=== PATIENT | female | born 1985 | race Caucasian/White ===

== ENCOUNTER 2016-12-11 19:54 | Emergency (ER) | payer OTHER ==
[~2016-12-11] VITALS: Ht 149.9 cm; Wt 47.7 kg
[2016-12-11 20:05] VITALS: BP 131/91; PULSE 80; RESP 16; O2SAT 99
--- NOTE | 2016-12-11 20:31 | ED.REPORT ---
HPI-Back Pain Under 40 Date of Service December 11, 2016 ED Provider: Dawood Blood DO A 31 year old female with a history of back injury presents to the ED due to back pain. The pt injured her back lifting a heavy object several years ago and has been in physical therapy since. The pt felt tightness in her back in the morning three days ago which worsened throughout the day despite stretching. By that evening, her back began to spasm. This has continued since and the pain is worsened when the pt lays down. She denies saddle numbness, loss of bowel or bladder control. The pt returned from a trip to [facility] this morning. Nursing Notes Stated Complaint: BACK SPASMS Chief Complaint: Back Pain or Injury Nursing Notes Reviewed: Yes Allergies: Coded Allergies: Penicillins (Verified Allergy, Unknown, 12/11/16) hydrocodone (Verified Allergy, Unknown, 12/11/16) General Time Seen by MD: 20:31 Chief Complaint Back pain Hx Obtained From: Patient Arrived By: Walk-in Sudden in Onset?: No Onset Occurred: 3 days ago Recent Healthcare: No recent hospitalization Similar Sx Previous: Yes Past Medical History Past Medical History back injury Past Surgical History none reported Smoking History Unknown if Ever Smoker Social History Alcohol Use: "Social" Other Social History: Good social support, Ambulatory Status Independent Review of Systems Review of Systems Note: denies saddle numbness denies loss of bowel or bladder control Respiratory: Denies: Non-productive cough, Shortness of breath Cardiovascular: Denies: Chest pain GI: Denies: Abdominal pain Musculoskeletal: Reports: Back pain Complete sys rev & neg: except as marked. Physical Exam Initial Vital Signs Vital Signs (First) Date Time Temp Pulse Resp B/P Pulse Ox O2 Delivery O2 Flow Rate FiO2 12/11/16 20:05 36.6 80 16 131/91 99 Room Air Initial VS: Reviewed General/Constitutional: Awake, Alert Back: Atraumatic left mid lumbar and lower thoracic muscle pain with palpation and front bending Neurologic: Oriented X3, Speech NL, No motor deficits, No sensory deficits Neck: Atraumatic, Supple, Full range of motion Respiratory / Chest: Atraumatic, Breath sounds NL, Breath sounds = bilat, No respiratory distress Cardiovascular: Heart rate NL, Regular rhythm, Heart sounds NL Abdomen: Atraumatic, Soft, Non-tender Lower Extremity / Pelvis / MS: Atraumatic, Full range of motion Head / Eyes: Atraumatic, Normocephalic, PERRL, EOMI ENT: Atraumatic, Airway patent, Mucous membranes moist Upper Extremity / MS: Atraumatic, Full range of motion Skin: Atraumatic, Color NL, No rash, Warm, Dry Psychiatric: Affect NL, Mood NL Interpretation & Diagnostics Lab Results Interpretation Test 12/11/16 22:26 Urine Color Yellow (YELLOW) Urine Appearance Clear (CLEAR,HAZY) Urine pH 7.0 (5.0-8.0) Urine Specific Mcgregor 1.015 (1.003-1.035) Urine Protein Negativemg/dL (NEG,TRACE) Urine Glucose (UA) Negativemg/dL (NEGATIVE) Urine Ketones Negativemg/dL (NEGATIVE) Urine Occult Blood Negative (NEGATIVE) Urine Nitrite Negative (NEGATIVE) Urine Bilirubin Negative (NEGATIVE) Urine Urobilinogen Normalmg/dL (NORMAL) Urine Leukocyte Esterase Negative (NEGATIVE) Urine RBC 0-2/hpf (0-2) Urine WBC 0-5/hpf (0-5) Urine Epithelial Cells Moderate/hpf (NONE-MOD) Urine Crystals None seen (NONE SEEN) Urine Bacteria Moderate/hpf (NONE-FEW) Urine Hyaline Casts None/lpf (NONE) Urine Granular Casts None seen (NONE SEEN) Urine Waxy Casts None seen (NONE SEEN) Urine Red Blood Cell Casts None seen (NONE SEEN) Urine White Blood Cell Casts None seen (NONE SEEN) Urine Mucus None seen (None Seen) Urine Trichomonas None seen (NONE SEEN) Urine Yeast None (NONE SEEN) Urinalysis Comment None Urine Culture Reflexed Indicated Pulse Oximetry Interpretation Pulse Oximetry Interpretation: 99% on room air Pulse Oximetry: Pulse Ox normal Re-Eval/Medical Decision Med Decision/Clinical Course Healthy 31-year-old female with recurrent back pain dating to her back last week. It has been steadily worsening. She took a long plane ride back stiffened up. She has left paraspinal muscle tenderness. No bony tenderness. Nothing in her history of physical examination is consistent with an aortic aneurysm, aortic dissection or pulmonary emboli. She is low risk based on pelvis criteria so x-rays are not indicated. Urinalysis was negative. I will place her on Naprosyn twice daily. Percocet for breakthrough pain. She received Toradol with significant relief of pain. Routine opiate and back pain warnings were given. Re-Evaluation/Progress #1: Time of Eval: 22:01 Patient Status: Condition improved Re-Evaluation/Progress Note: Pt rechecked, whose pain has improved. The plan for further treatment is discussed. Re-Evaluation/Progress #2: Time of Eval: 23:14 Patient Status: Condition improved Re-Evaluation/Progress Note: Pt rechecked, who is comfortable. The diagnosis and plan for discharge are discussed. The pt understands and agrees with the plan. All questions are addressed at this time. Counseled Regarding: Diagnosis, Lab results, Need for follow-up, When/why to return to ED Discharge & Departure Impression: Primary Impression: Lumbosacral strain Encounter type: initial encounter Qualified Code: S39.012A - Strain of muscle, fascia and tendon of lower back, initial encounter Additional Impression: Low back pain Chronicity: acute Back pain laterality: right Sciatica presence: without sciatica Qualified Code: M54.5 - Low back pain Disposition: Home All VS Reviewed: Yes Condition: Stable Patient Instructions: Low Back Strain (ED) Additional Instructions: Your urine sample was normal. I suspect that you have a musculoskeletal injury to your back. Rest your back for a few days. Take Naprosyn twice daily as directed for moderate pain. Take 1-2 Percocet every 6 hours as needed for severe pain. Do not drive or drink alcohol or consume acetaminophen while taking the Percocet. Rest your back for a few days. Return if any problems or any new or worsening symptoms. Follow-up with your primary care physician. Call Monday morning to set up a follow-up. Referrals: [facility] Lorie Attestation Portions of this note were transcribed by Ever Luna. I, Dr. Blood personally performed the history, physical exam and medical decision-making; I reviewed and confirmed the accuracy of the information in the transcribed note. Signed by: Lorie Quintanilla, 12/11/16 and 6030. copies to: [facility] Dawood Blood DO December 11, 2016 20:31 EVER LUNA December 11, 2016 21:05
[2016-12-11 22:36] LABS: APPEARANCE,URINE CLEAR (CLEAR,HAZY); COLOR,URINE YELLOW (YELLOW); OCCULT BLOOD,URINE NEGATIVE (NEGATIVE); UROBILINOGEN,URINE NORMAL (NORMAL)
== END 2016-12-11 23:16 | disposition home or self-care (01) ==
LOC: SED 19:54
DX: S39.012A Strain of muscle, fascia and tendon of lower back, initial encounter (principal); M54.5 Low back pain; X50.1XXA Overexertion from prolonged static or awkward postures, initial encounter; Y93.89 Activity, other specified; Y92.89 Other specified places as the place of occurrence of the external cause; Y99.8 Other external cause status; Z88.0 Allergy status to penicillin; Z88.5 Allergy status to narcotic agent
CPT/HCPCS: 81000; 81025; 87086; 96372; 99284; J1885

== ENCOUNTER 2016-12-12 05:59 | Emergency (ER) | payer OTHER ==
[~2016-12-12] VITALS: Ht 149.9 cm; Wt 47.7 kg
[2016-12-12 06:04] VITALS: BP 136/85; PULSE 97; RESP 22; O2SAT 98
--- NOTE | 2016-12-12 06:13 | ED.REPORT ---
HPI-Back Pain Under 40 Date of Service December 12, 2016 ED Provider: Lori Hudson MD Nursing Notes Stated Complaint: BACK SPAMS,STOMACH PAIN Chief Complaint: Back Pain or Injury Allergies: Coded Allergies: Penicillins (Verified Allergy, Unknown, 12/11/16) hydrocodone (Verified Allergy, Unknown, 12/11/16) General Time Seen by MD: 06:01 Past Medical History Past Medical History back injury Past Surgical History none reported Smoking History Unknown if Ever Smoker Social History Alcohol Use: "Social" Other Social History: Good social support, Ambulatory Status Independent Physical Exam Initial Vital Signs Vital Signs (First) Date Time Temp Pulse Resp B/P Pulse Ox O2 Delivery O2 Flow Rate FiO2 12/12/16 06:04 36.4 97 22 136/85 98 Room Air Discharge & Departure Referrals: Renee Fairchild (PCP) Lori Hudson MD December 12, 2016 06:13
--- NOTE | 2016-12-12 06:14 | ED.REPORT ---
HPI-Abd Pain F Under 40 Date of Service December 12, 2016 ED Provider: Lori Hudson MD The patient is a 31 year old female w/ a hx of asthma and back strain who presents to the ED due to left thoracic back spasm initial onset 6 days ago with an increase in severity this morning. She was seen at the ED last night for similar symptoms and given Toradol. The Toradol initially helped reduce her pain, but when she tried to move this morning, "everything seized up." She took extra-strength Tylenol SOLID STATE TESTER. C/o associated SOB due to pain and thoracic pain. She just got back from [place] yesterday morning. Her symptoms began as mild back pain, have increased in severity and progressed into spasms. She denies fever, chills, cough, or any bowel issues. When she lays down the pain is worse. Nursing Notes Stated Complaint: BACK SPAMS,STOMACH PAIN Chief Complaint: Back Pain or Injury Nursing Notes Reviewed: Yes Allergies: Coded Allergies: Penicillins (Verified Allergy, Unknown, 12/11/16) hydrocodone (Verified Allergy, Unknown, 12/11/16) General Time Seen by MD: 06:01 Chief Complaint Other (back spasm) Hx Obtained From: Patient Arrived By: Walk-in Sudden in Onset?: Yes Onset Occurred: 6 days ago Symptom Duration: Since onset Progression since Onset: Gradually worsening Quality: Painful Radiation: : Does not radiate Severity: Current: Moderate Associated with: Reports: Shortness of breath Recent Healthcare: Recent doctor visit Similar Sx Previous: Yes Past Medical History Past Medical History back injury Reports: Asthma Past Surgical History none reported Smoking History Unknown if Ever Smoker Social History Alcohol Use: "Social" Other Social History: Good social support, Ambulatory Status Independent Review of Systems Constitutional: Denies: Chills, Fever Respiratory: Reports: Shortness of breath, Denies: Non-productive cough GI: Denies: Constipation, Diarrhea Musculoskeletal: Reports: Back pain, Thoracic pain Complete sys rev & neg: except as marked. Physical Exam Initial Vital Signs Vital Signs (First) Date Time Temp Pulse Resp B/P Pulse Ox O2 Delivery O2 Flow Rate FiO2 12/12/16 06:04 36.4 97 22 136/85 98 Room Air Initial VS: Reviewed Head / Eyes: Atraumatic, Normocephalic, PERRL ENT: Mucous membranes moist, Conjunctiva normal, No scleral icterus Neck: Supple, Non-tender, Full range of motion Extremities: Vascular intact, Neuro intact, No swelling, No tenderness Skin: Warm, Dry Neurologic: Alert, Oriented, Nonfocal Psychiatric: Mood/affect normal, Behavior normal, Normal thought content General/Constitutional: Awake, Alert, Cooperative Respiratory / Chest: Atraumatic, Breath sounds NL, Breath sounds = bilat Cardiovascular: Heart rate NL, Regular rhythm, Heart sounds NL Abdomen: Atraumatic, Soft, Non-tender Back: No CVA tenderness no tenderness with compression of rib cage Interpretation & Diagnostics Lab Results Interpretation Result Diagram: 12/12/16 0705 12/12/16 0705 Test 12/12/16 06:55 12/12/16 07:05 Hold Forte Top Tube Received (Received) White Blood Count 7.3th/mm3 (3.8-10.1) Red Blood Count 4.39mil/mm3 (3.90-5.20) Hemoglobin 13.0g/dL (12.0-15.6) Hematocrit 39.7% (35.0-46.0) Mean Corpuscular Volume 90.4fL (81-100) Mean Corpuscular Hemoglobin 29.6pg (27.0-35.0) Mean Corpuscular Hemoglobin Concent 32.7% (32.0-37.0) Red Cell Distribution Width 13.0% (12.3-15.4) Platelet Count 229bil/L (150-400) Neutrophils (%) (Auto) 58.9% (40-74) Lymphocytes (%) (Auto) 27.3% (14-46) Monocytes (%) (Auto) 10.8% (4-12) Eosinophils (%) (Auto) 2.6% (0-5) Basophils (%) (Auto) 0.3% (0-3) Sodium Level 140mEq/L (134-144) Potassium Level 4.5mEq/L (3.5-5.2) Chloride Level 100mEq/L (97-108) Carbon Dioxide Level 27mmol/L (18-29) Blood Urea Nitrogen 12mg/dL (6-20) Creatinine 0.59mg/dL (0.57-1.00) Estimat Glomerular Filtration Rate 171mL/min (>59) Glucose Level 130mg/dL (60-99) Calcium Level 10.1mg/dL (8.5-10.1) Total Bilirubin 0.6mg/dL (0.0-1.2) Aspartate Amino Transf (AST/SGOT) 17U/L (0-50) Alanine Aminotransferase (ALT/SGPT) 9U/L (0-32) Alkaline Phosphatase 56U/L (25-150) Total Protein 7.1g/dL (6.4-8.4) Albumin 4.3g/dL (3.4-5.0) Lab Results Interpretation: Urinalysis from last night has been cultured. Showed epithelial cells and bacteria but did not look infected or have red cells. Did not look like a bladder infection. X-Ray Chest Interpretation Chest Xray Interpretation: IMPRESSION: normal chest x-ray View: Portable Interpretation / Wet Read by: Wet read ED physician Re-Eval/Medical Decision Re-Evaluation/Progress : Re-Evaluation/Progress Note: Plan for chest x-ray, blood work, and Ibuprofin. Counseled Regarding: Diagnosis, Lab results, Need for follow-up, When/why to return to ED Discharge & Departure Primary Impression: Pleurisy Ruled Out: Pneumonia, Pneumothorax, Pulmonary embolus, Zoster Disposition: Home Discharge Condition All VS Reviewed: Yes Condition: Stable Additional Instructions: I don't think this is due to musculoskeletal back pain - that is why you are getting the spasms through your chest/abdomen. I don't find any evidence of pneumonia. I would encourage you to google Pleurisy for addition information. It typically will last for 7-10 days and tends to get better without other intervention. Ibuprofen will help will the pleuritic pain. Follow up with your primary care physician as needed. Return to the Emergency Department for any new or worsening symptoms. I hope you feel better soon! I hope you had a great trip to [place]! Referrals: Renee Fairchild (PCP) Scribe Attestation Portion of this note were transcribed by Keshia Wilkins. I, Dr. Toshia Hudson, personally performed the history, physical exam, and medical decision-making: I reviewed and confirmed the accuracy for the information in the transcribed note. Signed by: dejah Tompkins, 12/12/16 0800 copies to: Renee Fairchild Shawna L MD December 12, 2016 06:14 Keshia Wilkins 15, 2017 06:47
[2016-12-12 07:14] LABS: BASOPHILS % (AUTO) 0.3 % (0-3); EOSINOPHILS % (AUTO) 2.6 % (0-5); MONOCYTES % (AUTO) 10.8 % (4-12); Mean Corpuscular Hemoglobin 29.6 pg (27.0-35.0); Mean Corpuscular Volume 90.4 fL (81-100); NEUTROPHILS % (AUTO) 58.9 % (40-74); Platelet Count 229 bil/L (150-400)
[2016-12-12 09:15] VITALS: BP 117/70; PULSE 70; RESP 16; O2SAT 98
--- NOTE | 2016-12-12 09:15 | DRSVH ---
PROCEDURE: X-RAY CHEST ONE VIEW, PORTABLE ([id number]) INDICATIONS: left pleuritic pain TECHNIQUE: One view of the chest was acquired. COMPARISON: None. FINDINGS: Surgical changes and devices: None. Lungs and pleura: No pleural effusions or pneumothorax. Lungs are clear. Mediastinum: Mediastinal contours appear normal. Heart size is normal. Bones and chest wall: No suspicious bony lesions. Overlying soft tissues appear unremarkable. IMPRESSION: No acute cardiopulmonary disease. Dictated by: Kenny Garcia M.D. on 12/12/2016 at 9:13 Approved by: Kenny Garcia M.D. on 12/12/2016 at 9:13
== END 2016-12-12 09:17 | disposition home or self-care (01) ==
LOC: SED 05:59
DX: R09.1 Pleurisy (principal); J45.909 Unspecified asthma, uncomplicated; Z87.828 Personal history of other (healed) physical injury and trauma; Z88.1 Allergy status to other antibiotic agents; Z88.5 Allergy status to narcotic agent